=== PATIENT | male | born 1960 | race Caucasian/White ===

== ENCOUNTER → 2017-07-17 | Outpatient (CLI) | payer OTHER | LOC: CIMAGING 09:00 | PROVIDERS: ATTEND Family Medicine | DX: M17.11 Unilateral primary osteoarthritis, right knee (principal) | CPT/HCPCS: 73562-PO ==

== ENCOUNTER → 2018-04-26 | Outpatient (CLI) | payer OTHER | LOC: CIMAGING 11:51 | PROVIDERS: ATTEND Family Medicine | DX: M54.5 Low back pain (principal) | CPT/HCPCS: 72100-PO ==